=== PATIENT | female | born 1965 | race Caucasian/White ===

== ENCOUNTER → 2020-02-28 | Outpatient (CLI) ==
[~2020-02-28] MED LIST: ACET650T3 PO; APPL300T4 PO; B-12100T2 PO; CVS-161 PO; GINK1CAP PO; KRIL1000 PO; SULF500T2 PO; ZYRTTAB8 PO
== END ==
LOC: EDUNIT# 13:20 → M LABSMTC 13:42
PROVIDERS: ATTEND Anesthesiology
DX: Z01.818 Encounter for other preprocedural examination (principal); Z11.59 Encounter for screening for other viral diseases
CPT/HCPCS: C9803; U0002

== ENCOUNTER 2020-03-01 09:55 | Day surgery (SDC) | payer OTHER, SELFPAY ==
[~2020-03-01] VITALS: Ht 170.2 cm; Wt 88.5 kg
[~2020-03-01 09:55] MED LIST changes: -ACET650T3 PO; +LR 1,000 ML IV ONE; +SUGAMMADEX SODIUM 500 MG/5 ML VIAL (BRIDION) As Ordered ONE
[2020-03-01] MEDS ORDERED: ROPIvacaine 0.5% 30ML INJECTION (J2795 PER 1MG) ONE (09:56)
[2020-03-01] MEDS ORDERED: LIDOCAINE 1% MDV 20ML VIAL ONE (09:56)
[2020-03-01] MEDS ORDERED: dexameTHASONE 10MG/1ML VIAL PRES.FREE (J1100 PER 1MG) ONE (09:56)
[2020-03-01] MEDS ORDERED: CLINDAMYCIN 600 MG in IV 1 EA IV ONE (10:15)
[2020-03-01] MEDS ORDERED: ACET650T3 PO (10:29)
[2020-03-01] MEDS ORDERED: LIDOCAINE 2% 100MG/5ML SDV (FOR ANES.) As Ordered ONE (10:29)
[2020-03-01] MEDS ORDERED: ROCURONIUM BROMIDE 50 MG/5 ML VIAL As Ordered ONE ×2 (10:29→10:46)
[2020-03-01] MEDS ORDERED: propofoL 200 MG/20 ML VIAL As Ordered ONE (10:29)
[2020-03-01] MEDS ORDERED: ONDANSETRON 4MG/2ML VIAL As Ordered ONE (10:31)
[2020-03-01] MEDS ORDERED: dexameTHASONE 4 MG/ML 1ML VIAL (J1100 PER 1MG) As Ordered ONE (10:31)
[2020-03-01 10:35] LABS: HEMATOCRIT 41.3 % (36.0-47.0); HEMOGLOBIN 13.6 g/dl (12.0-15.5); MEAN CORPUSCULAR HEMOGLOBIN 31.7 pg (27.0-33.0); MEAN CORPUSCULAR HGB CONC 32.9 g/dl (32.0-36.5); MEAN CORPUSCULAR VOLUME 96.3 fl (80.0-96.0); PLATELET COUNT, AUTOMATED 215 10^3/uL (150-450); RED BLOOD COUNT 4.29 10^6/uL (4.00-5.40); WHITE BLOOD COUNT 4.7 10^3/uL (4.0-10.0)
[2020-03-01] MEDS ORDERED: fentaNYL 100 MCG/2 ML INJECTION (J3010) As Ordered ONE (10:36)
[2020-03-01] MEDS ORDERED: MIDAZOLAM INJ 2MG/2ML VIAL (J2250 PER 1MG) As Ordered ONE (10:36)
[2020-03-01] MEDS ORDERED: SCOPOLAMINE 1MG TRANSDERMAL PATCH TOP ONE (10:45)
[2020-03-01 11:01] LABS: BLOOD UREA NITROGEN 11 MG/DL (7-18); CALCIUM LEVEL 9.4 MG/DL (8.5-10.1); CARBON DIOXIDE LEVEL 28 MEQ/L (21-32); CHLORIDE LEVEL 106 MEQ/L (98-107); CREATININE FOR GFR 0.58 MG/DL (0.55-1.30); GLOMERULAR FILTRATION RATE > 60.0 (>51); GLUCOSE, FASTING 107 MG/DL (70-100); POTASSIUM SERUM 4.1 MEQ/L (3.5-5.1); SODIUM LEVEL 140 MEQ/L (136-145)
--- NOTE | 2020-03-01 11:01 | ECGEPIP ---
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
[2020-03-01] MEDS: MIDAZOLAM INJ 2MG/2ML VIAL (J2250 PER 1MG) IV PRN ×2 (11:02→11:04)
[2020-03-01] MEDS: fentaNYL 100 MCG/2 ML INJECTION (J3010) IV PRN ×2 (11:02→11:05)
[2020-03-01] MEDS ORDERED: EPINEPHrine 1MG/ML INJ 30ML MD-VIAL As Ordered ONE (11:27)
[2020-03-01] MEDS ORDERED: PHENYLephrine HCL 500 MCG/5 ML (100MCG/ML) SYRINGE (J2370) As Ordered ONE (12:14)
[2020-03-01] MEDS ORDERED: ONDANSETRON 4MG/2ML VIAL IV PRN (13:45)
[2020-03-01] MEDS ORDERED: LR 1,000 ML IV SCH ×2 (13:45)
[2020-03-01] MEDS ORDERED: oxyCODONE 5MG TAB PO PRN (13:45)
[2020-03-01] MEDS ORDERED: MORPHINE 2 MG/ML 1ML VIAL (J2270) IV PRN (13:45)
[2020-03-01] MEDS ORDERED: PERCOCET 5MG/325MG TAB PO PRN ×2 (13:45)
[2020-03-01] MEDS ORDERED: fentaNYL 100 MCG/2 ML INJECTION (J3010) IV PRN (13:45)
[2020-03-01 15:10] VITALS: BP 170/88
--- NOTE | 2020-03-04 00:23 | RO ---
DATE OF PROCEDURE: 03/01/2020 PREPROCEDURE DIAGNOSES: 1. Right shoulder biceps superior labral anterior to posterior (SLAP) tear with biceps tendonitis. 2. Right shoulder acromioclavicular (AC) joint arthritis. POSTPROCEDURE DIAGNOSES: 1. Right shoulder biceps tendonitis. 2. Right shoulder superior labral tear. 3. Right shoulder glenohumeral arthritis. 4. Right shoulder osteochondral loose body. 5. Right shoulder acromioclavicular joint arthritis. PROCEDURE: 1. Right shoulder arthroscopic biceps synovectomy with light humeral chondroplasty. 2. Right shoulder arthroscopic removal of a chondral loose body. 3. Right shoulder arthroscopic superior labral tear debridement. 4. Right shoulder arthroscopic biceps tenotomy with an open subpectoralis tenodesis separate incision. 5. Right shoulder arthroscopic subacromial bursectomy with arthroscopic distal clavicle excision. SURGEON: Chad Rodriguez MD NURSE TRANSPLANT: Ms. Camila Han ANESTHESIA: Right interscalene nerve block with a general endotracheal tube anesthetic. COMPLICATIONS: None. ESTIMATED BLOOD LOSS: 20 mL. FINDINGS: She had extensive tearing of the superior labrum and possible partial upper border subscapularis (subscap) tearing. The biceps was significantly inflated. In addition, however, there was significant chondromalacia involving mainly the anterior aspect of the humeral head with some osteochondral fragmentation noted and a fairly sizable loose body that was floating within the joint, which was photographed and removed with a shaver. The labrum otherwise was redundant and thick posteriorly but intact anteriorly, and the subscap had some waviness appearance to it, but was intact. The AC joint was markedly degenerative with fibrous frayed tissue within the joint consistent with having symptoms emanating from that area as well. The rotator cuff was found not to be torn. DESCRIPTION OF PROCEDURE: After antibiotics were given and appropriate right interscalene nerve block was performed, she was taken to the operating room where general endotracheal tube anesthetic was established. She was placed in the semi-beach chair position, the Spider shoulder pérez was utilized. The right shoulder area was carefully prepped and draped in the usual sterile fashion, and after appropriate time-out, routine diagnostic arthroscopy was performed through a posterior portal with the findings as noted. I debrided the loose fragmenting articular cartilage from the humeral head and then removed the looses body, and then inspected the redundant torn superior labrum and debrided that with a shaver. And then a tenotomy was performed with the ablator wand. Rotator cuff was inspected, found to be intact, and the subscapularis was actually intact, but had some waviness to it, unusual structure to it. It was photographed but it was not torn. Next, I then placed the scope in the subacromial space and performed a bursectomy. The rotator cuff was again not found to be torn on the bursal side. Then, I dissected over and exposed the AC joint and found that the AC joint was quite degenerative with the fragmented fibrous tissue within the AC joint. Then, I used the ablator wand to help debride the bursa and control the bleeding points and then a direct anterior portal was established into the AC joint through which I placed the ablator wand, the shaver, and then eventually the bur to perform a formal distal clavicle excision. Photographs were taken to document this before and afterwards. Once that had been concluded, no other arthroscopic pathology was identifiable that we could treat and thus we removed the arthroscopy instruments, then made a small longitudinal incision in the anterior axillary fold. Used Bovie cautery to coagulate crossing vessels, dissected down to the pectoralis, retrieved the biceps tendon, made a small subperiosteal dissection into the bicipital groove into which I placed the drill guide for the Mitek anchor, drilled the hole, placed the Mitek anchor. Then, I stitched at the myotendinous junction of the biceps tendon, removed the access and then dumped it down to the anchor and secured it to the anchor with several alternating post half-hitches. We then cut the sutures short, copiously irrigated the wound, and closed the anterior axillary skin incision with a running #3-0 nylon suture The rest of the arthroscopy portals were closed with nylon sutures, covered by Adaptic, dry sterile bulky dressing, and she was placed into an abduction brace, then awakened from general endotracheal tube anesthesia after having tolerated the procedure well and transferred to the recovery room in stable condition. There were no intraoperative complications. Ms. Camila Han was critical to the success of this difficult procedure by helping to appropriately manipulate the shoulder and the instruments, helped to prepare the patient for surgery, helped to close the wound, amongst many other tasks to allow me to perform the operation smoothly, efficiently, and safely.
== END 2020-03-01 15:15 | disposition home or self-care (01) ==
LOC: M SDC 09:55
PROVIDERS: ATTEND Orthopaedic Surgery
DX: S43.431A Superior glenoid labrum lesion of right shoulder, initial encounter (principal); M75.21 Bicipital tendinitis, right shoulder; M19.011 Primary osteoarthritis, right shoulder; M24.011 Loose body in right shoulder; Z88.0 Allergy status to penicillin; X58.XXXA Exposure to other specified factors, initial encounter; Y92.89 Other specified places as the place of occurrence of the external cause; Y93.9 Activity, unspecified; Y99.9 Unspecified external cause status
CPT/HCPCS: 23430; 29819; 29823; 29824; 36415; 64415; 80048; 85027; 88304; 93005; C1713; J1100; J2250; J2370; J2405; J2795

== ENCOUNTER 2020-03-12 12:03 | Inpatient (IN) | payer BC, OTHER ==
[~2020-03-12] VITALS: Ht 170.2 cm; Wt 87.1 kg
[~2020-03-12 12:03] MED LIST changes: +ACET650T3 PO; +ATORVASTATIN 20 MG TAB PO SCH; -LR 1,000 ML IV ONE; -SUGAMMADEX SODIUM 500 MG/5 ML VIAL (BRIDION) As Ordered ONE
[2020-03-12] MEDS ORDERED: HYDR-3713 PO (12:12)
[2020-03-12] MEDS ORDERED: NS 1,000 ML IV SCH (12:45)
[2020-03-12] MEDS ORDERED: ISOVUE-370 76% 100ML VIAL As Ordered ONE (12:47)
[2020-03-12 12:48] LABS: HEMATOCRIT 40.4 % (36.0-47.0); HEMOGLOBIN 13.4 g/dl (12.0-15.5); MEAN CORPUSCULAR HEMOGLOBIN 30.8 pg (27.0-33.0); MEAN CORPUSCULAR HGB CONC 33.2 g/dl (32.0-36.5); MEAN CORPUSCULAR VOLUME 92.9 fl (80.0-96.0); PLATELET COUNT, AUTOMATED 229 10^3/uL (150-450); RED BLOOD COUNT 4.35 10^6/uL (4.00-5.40); WHITE BLOOD COUNT 5.1 10^3/uL (4.0-10.0)
[2020-03-12 13:01] LABS: INR 0.92; PROTHROMBIN TIME 12.1 SECONDS (11.8-14.0)
[2020-03-12 13:20] LABS: ALBUMIN 4.3 GM/DL (3.2-5.2); ALT/SGPT 68 U/L (12-78); BILIRUBIN,DIRECT 0.1 MG/DL (0.0-0.2); BILIRUBIN,TOTAL 0.4 MG/DL (0.2-1.0); BLOOD UREA NITROGEN 11 MG/DL (7-18); CALCIUM LEVEL 9.1 MG/DL (8.5-10.1); CARBON DIOXIDE LEVEL 26 MEQ/L (21-32); CHLORIDE LEVEL 106 MEQ/L (98-107); CREATININE FOR GFR 0.57 MG/DL (0.55-1.30); GLOMERULAR FILTRATION RATE > 60.0 (>51); GLUCOSE, FASTING 107 MG/DL (70-100); POTASSIUM SERUM 3.8 MEQ/L (3.5-5.1); SODIUM LEVEL 138 MEQ/L (136-145); TOTAL PROTEIN 7.9 GM/DL (6.4-8.2)
--- NOTE | 2020-03-12 13:53 | REP ---
CT BRAIN WITHOUT CONTRAST: CT brain performed without IV contrast. Coronal reconstruction images are performed The ventricles are normal in size and position with no midline shift or mass effect. Tompkins-white differentiation is well maintained. There is no intracranial hemorrhage or extra-axial fluid collection. Visualized mastoid air cells and paranasal sinuses are clear. There is a soft tissue nodule in the left parietal convexity approximately 9 mm in diameter, which probably represents a complex sebaceous cyst or nodule. IMPRESSION: Essentially negative CT brain without contrast. Electronically Signed by Ugo Tompkins MD 03/12/2020 02:30 P
[2020-03-12] MEDS ORDERED: ASPIRIN 325 MG TAB PO ONE (14:30)
--- NOTE | 2020-03-12 14:34 | REP ---
CT ANGIOGRAM NECK: CT angiogram of the neck is performed following the intravenous administration of 100 mL Isovue-370. Sagittal, coronal, and MIP reconstruction images are performed. Aortic arch is normal in caliber with no aneurysm or dissection. Subclavian arteries are patent with no stenosis. Both common carotid arteries are patent with no significant narrowing or stenosis. The internal and external carotid arteries are patent with no significant stenosis or occlusion. Adjacent soft tissues of the neck are unremarkable with no mass or adenopathy. Visualized lung apices are clear. The cervical portion of the vertebral arteries are patent. IMPRESSION: No evidence of internal carotid artery stenosis or occlusion bilaterally. Electronically Signed by Ugo Tompkins MD 03/12/2020 03:14 P
--- NOTE | 2020-03-12 14:39 | REP ---
CT ANGIOGRAM BRAIN: CT angiogram of the brain is performed following the intravenous administration of 100 mL of Isovue-370. Sagittal, coronal, and MIP reconstruction images are performed. The left vertebral artery is dominant. The right vertebral artery is patent. There is a somewhat tortuous basilar artery which does not demonstrate stenosis or occlusion. There are symmetrical patent posterior cerebral arteries. Intracranial internal carotid arteries are patent and symmetrical. The right anterior communicating artery is smaller in caliber than the left. Anterior and middle cerebral arteries are symmetrical and patent. I see no aneurysm or AVM. IMPRESSION: No evidence of significant intracranial arterial abnormality. Electronically Signed by Ugo Tompkins MD 03/12/2020 03:14 P
[2020-03-12 15:20] LABS: HEMOGLOBIN A1c 4.6 %
[2020-03-12 15:21] LABS: MAGNESIUM LEVEL 2.1 MG/DL (1.8-2.4)
[2020-03-12 15:24] VITALS: BP 153/74
--- NOTE | 2020-03-12 15:37 | REPVR ---
PROCEDURE INFORMATION: Exam: MR Head Without Contrast Exam date and time: 03/12/2020 2:28 PM Age: 54 years old Clinical indication: Visual disturbance; Additional info: Vision changes TECHNIQUE: Imaging protocol: MR of the head without contrast. COMPARISON: CT Head without contrast 03/12/2020 12:42 PM FINDINGS: Brain: Examination reveals few tiny focal areas of increased T2 signal in bilateral frontal and parietal subcortical white matter. These are nonspecific and could be secondary to chronic migraine headache and focal areas of chronic ischemia. No acute infarction, masses, midline shift or acute hemorrhage is seen. No acute intracranial abnormality is identified.There is no abnormal diffusion weighted signal intensity to suggest an acute ischemic event.The cortical morales / white matter interfaces are preserved throughout the brain.Intracranial flow voids are well maintained.Examination of the posterior fossa demonstrates no significant abnormality.On gradient echo imaging, no susceptibility changes are seen to represent parenchymal calcification or degraded blood products. Ventricles: The ventricular system is not dilated and is appropriate for the patient's age. Bones/joints: Unremarkable. Sinuses: Normal as visualized. No acute sinusitis. Mastoid air cells: Normal as visualized. No mastoid effusion. Orbits: Unremarkable. Soft tissues: Unremarkable. IMPRESSION: No acute infarction, masses or hemorrhage is seen. No acute intracranial abnormality is identified. Electronically signed by: Estuardo Newton On 03/12/2020 15:37:08 PM
[2020-03-12] MEDS ORDERED: RA G1TAB11 PO (15:57)
[2020-03-12] MEDS ORDERED: NORCO, ANEXSIA 5/325MG TABLET (HYDROcodone/ACETAMINOPHEN) PO PRN (16:00)
[2020-03-12] MEDS ORDERED: ACETAMINOPHEN 650MG ER TAB (TYLENOL ARTHRITIS) PO PRN (16:00)
[2020-03-12] MEDS ORDERED: TETRACAINE 0.5% OPHTH SOLN 4ML OD ONE (17:15)
[2020-03-12 18:26] VITALS: BP 155/68
--- NOTE | 2020-03-12 22:13 | ECGEPIP ---
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
[2020-03-13] MEDS ORDERED: ASPIRIN ENTERIC 325 MG TAB PO SCH (09:00)
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
--- NOTE | 2020-03-13 11:51 | ECHO ---
DATE OF STUDY: 03/12/2020 REFERRING PHYSICIAN: Dr. Hankins INDICATION: Transient ischemic attack (TIA). Height 170 cm, weight 87 kg. DIMENSIONS: RV: 3.5 IVS: 1.1 LV: 4.0 LVPW: 1.1 LA: 3.3 Aorta: 3.5 Mitral E wave velocity: 56 A wave: 79 E prime septal: 5.0 E prime lateral: 7.2 FINDINGS: The study is of fair technical quality. The patient is in sinus rhythm. There are decent parasternal and subcostal views, but apical views were of very limited quality. Left ventricle is normal size and systolic function, estimated left ventricular ejection fraction (LVEF) 65% to 70%. Right ventricle appears normal. Both atria appear normal. All four cardiac valves were reasonably well seen and appear normal. No pericardial effusion is noted. Inferior vena cava is normal size and appropriately collapses with inspiration. Aortic root and aortic arch appear normal. Abdominal aorta was not well seen. Doppler interrogation reveals no stenosis or insufficiency of all four cardiac valves. Mitral inflow pattern and tissue Doppler imaging of mitral annulus reveal grade 1 diastolic dysfunction. CONCLUSIONS: 1. Study is of fair technical quality; the patient is in sinus rhythm. 2. Normal left ventricle (LV) size and systolic function, grade 1 diastolic dysfunction. 3. No significant valvular disease. 4. Likely normal central venous pressure, unable to estimate pulmonary artery pressure. 5. No obvious abnormalities to explain TIA.
== END 2020-03-12 18:35 | disposition short-term general hospital (02) | DRG 82 ==
LOC: M ED 12:03 → M ED INP 14:33 → ENRESERV 14:53 → M PCU 15:23
PROVIDERS: ADMIT General Practice; ATTEND General Practice
DX: H40.219 Acute angle-closure glaucoma, unspecified eye (principal); Z88.0 Allergy status to penicillin; Z79.899 Other long term (current) drug therapy

== ENCOUNTER → 2021-12-19 | Outpatient (CLI) | payer BC ==
[~2021-12-19] MED LIST changes: -ATORVASTATIN 20 MG TAB PO SCH; +HYDR-3713 PO; +ISOVUE-300 61% 50ML VIAL As Ordered ONE; +LIDOCAINE 1% MDV 20ML VIAL As Ordered ONE; +RA G1TAB11 PO; +TRIAMCINOLONE ACETONIDE SUSP 40 MG/ML VIAL (J3301) As Ordered ONE
== END ==
LOC: M RADPRO 15:08
PROVIDERS: ATTEND Orthopaedic Surgery
DX: M19.011 Primary osteoarthritis, right shoulder (principal)
CPT/HCPCS: 20610; 77002; J3301; Q9967

== ENCOUNTER → 2022-08-28 | Outpatient (CLI) | payer BC, OTHER ==
[~2022-08-28] MED LIST changes: -ISOVUE-300 61% 50ML VIAL As Ordered ONE; +ISOVUE-300 61% 50ML VIAL ONE; -LIDOCAINE 1% MDV 20ML VIAL As Ordered ONE; +LIDOCAINE 1% MDV 20ML VIAL ONE; -TRIAMCINOLONE ACETONIDE SUSP 40 MG/ML VIAL (J3301) As Ordered ONE; +TRIAMCINOLONE ACETONIDE SUSP 40 MG/ML VIAL (J3301) ONE
== END ==
LOC: M PLAIMG 13:42
PROVIDERS: ATTEND Orthopaedic Surgery
DX: M19.011 Primary osteoarthritis, right shoulder (principal)
CPT/HCPCS: 20610; 76000; J3301

== ENCOUNTER → 2023-01-29 | Outpatient (CLI) | payer OTHER ==
[~2023-01-29] MED LIST changes: -ISOVUE-300 61% 50ML VIAL ONE; -LIDOCAINE 1% MDV 20ML VIAL ONE; -TRIAMCINOLONE ACETONIDE SUSP 40 MG/ML VIAL (J3301) ONE
== END ==
LOC: M RAD 15:00
PROVIDERS: ATTEND Physician Assistant Surgical
DX: M19.072 Primary osteoarthritis, left ankle and foot (principal)

== ENCOUNTER 2023-02-21 10:05 | Emergency (ER) | payer BC, OTHER ==
[~2023-02-21] VITALS: Ht 170.2 cm; Wt 79.8 kg
[2023-02-21 12:30] VITALS: BP 162/81
== END 2023-02-21 12:37 | disposition home or self-care (01) ==
LOC: M ED 10:05
DX: R60.0 Localized edema (principal); M79.605 Pain in left leg; I10 Essential (primary) hypertension; Z88.0 Allergy status to penicillin; Z88.1 Allergy status to other antibiotic agents; Z91.02 Food additives allergy status; Z79.1 Long term (current) use of non-steroidal anti-inflammatories (NSAID); Z79.810 Long term (current) use of selective estrogen receptor modulators (SERMs); Z79.899 Other long term (current) drug therapy

== ENCOUNTER → 2024-01-20 | Outpatient (REF) | payer BC ==
[2024-01-20 18:38] LABS: BASO # 0.1 10^3/uL (0.0-0.2); EOS # 0.1 10^3/uL (0.0-0.5); EOS % 2.2 % (0.0-3.0); HEMATOCRIT 37.7 % (36.0-47.0); HEMOGLOBIN 12.7 g/dl (12.0-15.5); LYMPH % 38.9 % (24.0-44.0); MEAN CORPUSCULAR HEMOGLOBIN 30.9 pg (27.0-33.0); MEAN CORPUSCULAR HGB CONC 33.7 g/dl (32.0-36.5); MEAN CORPUSCULAR VOLUME 91.7 fl (80.0-96.0); MONO # 0.4 10^3/uL (0.0-0.8); MONO % 7.5 % (2.0-8.0); NEUTROPHILS # 2.5 10^3/uL (1.5-8.5); PLATELET COUNT, AUTOMATED 203 10^3/uL (150-450); RED BLOOD COUNT 4.11 10^6/uL (4.00-5.40); WHITE BLOOD COUNT 5.1 10^3/uL (4.0-10.0)
[2024-01-20 18:41] LABS: HEMOGLOBIN A1c 5.2 % (4.0-6.0)
[2024-01-20 18:58] LABS: C REACTIVE PROTEIN QUANTITATIV < 0.40 MG/DL (<1.0)
[2024-01-20 18:59] LABS: ALBUMIN 4.2 G/DL (3.2-5.2); ALKALINE PHOSPHATASE 59 U/L (46-116); ALT/SGPT 23 U/L (7.0-40); AST/SGOT 11 U/L (<34); BILIRUBIN,TOTAL 0.6 MG/DL (0.3-1.2); BLOOD UREA NITROGEN 22 MG/DL (9-23); CALCIUM LEVEL 9.2 MG/DL (8.5-10.1); CARBON DIOXIDE LEVEL 28 MMOL/L (20-31); CHLORIDE LEVEL 106 MMOL/L (98-107); CHOLESTEROL LEVEL 223 MG/DL (<200); CHOLESTEROL RISK RATIO 2.88 (<5); CREATININE FOR GFR 0.53 MG/DL (0.55-1.30); GLOMERULAR FILTRATION RATE > 60.0 (>51); GLUCOSE, FASTING 93 MG/DL (60-100); HDL CHOLESTEROL 77.3 MG/DL (>40); LDL CHOLESTEROL 102.5 MG/DL (<100); NON-HDL-C 145.7 MG/DL; POTASSIUM SERUM 3.9 MMOL/L (3.5-5.1); SODIUM LEVEL 138 MMOL/L (136-145); THYROID STIMULATING HORMONE 2.003 uIU/ML (0.55-4.78); TRIGLYCERIDES LEVEL 216 MG/DL (<150)
[2024-01-20 19:00] LABS: FREE T4 0.91 NG/DL (0.89-1.76)
[2024-01-20 19:13] LABS: ERYTHROCYTE SEDIMENTATION RATE 11 mm/hr (0-30)
[2024-01-22 23:07] LABS: CYCLIC CITRULLINATED PEPTIDE 5 units (0-19)
== END ==
LOC: M SFHCCLAY 13:59
PROVIDERS: ATTEND Nurse Practitioner Family
DX: M19.90 Unspecified osteoarthritis, unspecified site (principal); Z13.220 Encounter for screening for lipoid disorders; Z13.1 Encounter for screening for diabetes mellitus

== ENCOUNTER → 2024-01-30 | Outpatient (CLI) | payer BC | LOC: M WHC 13:52 | PROVIDERS: ATTEND Nurse Practitioner Family | DX: Z12.31 Encounter for screening mammogram for malignant neoplasm of breast (principal) ==

== ENCOUNTER 2024-04-21 08:48 | Day surgery (SDC) | payer BC ==
[~2024-04-21] VITALS: Ht 170.2 cm; Wt 81.6 kg
[~2024-04-21 08:48] MED LIST changes: +CALC500T38 PO; +CODCAP26 PO; +RA G580C PO; +TURM500C PO; +ZYRT10TA12 PO
[2024-04-21] MEDS: NS 1,000 ML IV ONE (09:17)
[2024-04-21] MEDS ORDERED: LIDOCAINE 2% 100MG/5ML SDV (FOR ANES.) As Ordered ONE (09:20)
[2024-04-21] MEDS ORDERED: propofoL 200 MG/20 ML VIAL As Ordered ONE (09:20)
[2024-04-21 10:46] VITALS: TEMP 97.3
[2024-04-21 11:07] VITALS: BP 147/67; O2SAT 100
== END 2024-04-21 11:15 | disposition home or self-care (01) ==
LOC: M OPP 08:48
PROVIDERS: ATTEND Surgery
DX: D12.6 Benign neoplasm of colon, unspecified (principal); R19.5 Other fecal abnormalities; Z88.0 Allergy status to penicillin; Z88.1 Allergy status to other antibiotic agents; Z91.018 Allergy to other foods

== ENCOUNTER 2024-06-11 11:17 | Emergency (ER) | payer BC ==
[~2024-06-11] VITALS: Ht 170.2 cm; Wt 85.1 kg
[2024-06-11 14:19] LABS: BASO % 0.5 % (0.0-1.0); EOS # 0.1 10^3/uL (0.0-0.5); EOS % 1.9 % (0.0-3.0); HEMATOCRIT 38.1 % (36.0-47.0); HEMOGLOBIN 12.7 g/dl (12.0-15.5); LYMPH # 1.6 10^3/uL (1.5-5.0); LYMPH % 28.7 % (24.0-44.0); MEAN CORPUSCULAR HGB CONC 33.3 g/dl (32.0-36.5); MEAN CORPUSCULAR VOLUME 92.9 fl (80.0-96.0); MONO # 0.4 10^3/uL (0.0-0.8); MONO % 7.8 % (2.0-8.0); NEUTROPHILS # 3.4 10^3/uL (1.5-8.5); NEUTROPHILS % 60.7 % (36.0-66.0); PLATELET COUNT, AUTOMATED 247 10^3/uL (150-450); WHITE BLOOD COUNT 5.7 10^3/uL (4.0-10.0)
[2024-06-11 14:46] LABS: BLOOD UREA NITROGEN 17 MG/DL (9-23); CALCIUM LEVEL 9.4 MG/DL (8.5-10.1); CARBON DIOXIDE LEVEL 27 MMOL/L (20-31); CHLORIDE LEVEL 107 MMOL/L (98-107); CREATININE FOR GFR 0.42 MG/DL (0.55-1.30); GLOMERULAR FILTRATION RATE > 60.0 (>51); GLUCOSE, FASTING 107 MG/DL (60-100); POTASSIUM SERUM 4.3 MMOL/L (3.5-5.1); SODIUM LEVEL 139 MMOL/L (136-145)
[2024-06-11] MEDS ORDERED: ISOVUE-370 76% 100ML VIAL As Ordered ONE (14:54)
[2024-06-11 16:47] VITALS: BP 151/81; TEMP 97.3; O2SAT 100
== END 2024-06-11 16:48 | disposition home or self-care (01) ==
LOC: M ED 11:17
DX: S70.01XA Contusion of right hip, initial encounter (principal); V80.010D Animal-rider injured by fall from or being thrown from horse in noncollision accident, subsequent encounter; F10.10 Alcohol abuse, uncomplicated; Z88.0 Allergy status to penicillin; Z88.1 Allergy status to other antibiotic agents; Z91.02 Food additives allergy status; Y92.9 Unspecified place or not applicable; Y93.89 Activity, other specified; Y99.9 Unspecified external cause status; Z79.899 Other long term (current) drug therapy
CPT/HCPCS: 36415; 73700; 80048; 85025; 99284; Q9967

== ENCOUNTER 2024-08-23 14:47 | Emergency (ER) | payer BC ==
[~2024-08-23] VITALS: Ht 170.2 cm; Wt 87.2 kg
[~2024-08-23 14:47] MED LIST changes: +GARL580C PO; -RA G580C PO
[2024-08-23] MEDS: methylPREDNISolone 125MG 2ML VIAL IM ONE (18:21)
[2024-08-23] MEDS ORDERED: PRED50TA PO (18:56)
[2024-08-23 19:19] VITALS: BP 165/80; TEMP 97.6; O2SAT 100
== END 2024-08-23 19:35 | disposition home or self-care (01) ==
LOC: M ED 14:47
DX: L50.1 Idiopathic urticaria (principal); Z88.0 Allergy status to penicillin; Z88.1 Allergy status to other antibiotic agents; Z91.02 Food additives allergy status; Z79.899 Other long term (current) drug therapy; Z79.52 Long term (current) use of systemic steroids
CPT/HCPCS: 96372; 99284; J2919

== ENCOUNTER → 2024-08-31 | Outpatient (REF) | payer BC ==
[~2024-08-31] MED LIST changes: +PRED50TA PO
[2024-08-31 19:00] LABS: BASO % 0.7 % (0.0-1.0); EOS # 0.1 10^3/uL (0.0-0.5); EOS % 2.2 % (0.0-3.0); HEMATOCRIT 41.6 % (36.0-47.0); HEMOGLOBIN 13.7 g/dl (12.0-15.5); LYMPH % 16.4 % (24.0-44.0); MEAN CORPUSCULAR HEMOGLOBIN 29.4 pg (27.0-33.0); MEAN CORPUSCULAR HGB CONC 32.9 g/dl (32.0-36.5); MEAN CORPUSCULAR VOLUME 89.3 fl (80.0-96.0); MONO # 0.4 10^3/uL (0.0-0.8); MONO % 6.4 % (2.0-8.0); NEUTROPHILS # 4.4 10^3/uL (1.5-8.5); NEUTROPHILS % 73.6 % (36.0-66.0); PLATELET COUNT, AUTOMATED 108 10^3/uL (150-450); RED BLOOD COUNT 4.66 10^6/uL (4.00-5.40); WHITE BLOOD COUNT 5.9 10^3/uL (4.0-10.0)
[2024-08-31 19:01] LABS: ALBUMIN 3.8 G/DL (3.2-5.2); ALKALINE PHOSPHATASE 218 U/L (35-104); ALT/SGPT 138 U/L (7.0-40); AST/SGOT 67 U/L (<34); BILIRUBIN,TOTAL 0.6 MG/DL (0.3-1.2); BLOOD UREA NITROGEN 16 MG/DL (9-23); CALCIUM LEVEL 9.9 MG/DL (8.5-10.1); CARBON DIOXIDE LEVEL 32 MMOL/L (20-31); CHLORIDE LEVEL 103 MMOL/L (98-107); CREATININE FOR GFR 0.59 MG/DL (0.55-1.30); GLOMERULAR FILTRATION RATE > 60.0 (>51); GLUCOSE, FASTING 96 MG/DL (60-100); POTASSIUM SERUM 3.7 MMOL/L (3.5-5.1); SODIUM LEVEL 139 MMOL/L (136-145); TOTAL PROTEIN 7.6 G/DL (5.7-8.2)
[2024-08-31 19:04] LABS: THYROID STIMULATING HORMONE 1.323 uIU/ML (0.55-4.78)
[2024-08-31 19:07] LABS: ERYTHROCYTE SEDIMENTATION RATE 37 mm/hr (0-30)
== END ==
LOC: M SFHCCLAY 10:56
PROVIDERS: ATTEND Physician Assistant
DX: L50.8 Other urticaria (principal)

== ENCOUNTER → 2025-04-19 | Outpatient (REF) | payer BC ==
[~2025-04-19] MED LIST changes: -PRED50TA PO; +PRED50TA57 PO
[2025-04-19 17:33] LABS: BASO # 0.1 10^3/uL (0.0-0.2); BASO % 0.9 % (0.0-1.0); EOS # 0.2 10^3/uL (0.0-0.5); EOS % 2.8 % (0.0-3.0); LYMPH # 1.5 10^3/uL (1.5-5.0); LYMPH % 27.0 % (24.0-44.0); MONO # 0.5 10^3/uL (0.0-0.8); MONO % 8.6 % (2.0-8.0); NEUTROPHILS # 3.4 10^3/uL (1.5-8.5); NEUTROPHILS % 60.3 % (36.0-66.0); PLATELET COUNT, AUTOMATED 196 10^3/uL (150-450)
[2025-04-19 17:44] LABS: ALT/SGPT 40 U/L (7.0-40); AST/SGOT 27 U/L (<34); CALCIUM LEVEL 9.5 MG/DL (8.3-10.6); CARBON DIOXIDE LEVEL 29 MMOL/L (20-31); CHLORIDE LEVEL 107 MMOL/L (98-107); CHOLESTEROL LEVEL 223 MG/DL (<200); CHOLESTEROL RISK RATIO 3.47 (<5); CREATININE FOR GFR 0.57 MG/DL (0.55-1.30); GLOMERULAR FILTRATION RATE > 90.0 (>45); LDL CHOLESTEROL 109.9 MG/DL (<100); NON-HDL-C 158.9 MG/DL; POTASSIUM SERUM 3.5 MMOL/L (3.5-5.1); SODIUM LEVEL 142 MMOL/L (136-145); TRIGLYCERIDES LEVEL 245 MG/DL (<150)
[2025-04-19 17:46] LABS: FREE T4 1.10 NG/DL (0.89-1.76)
[2025-04-19 17:52] LABS: ESTIMATED AVERAGE GLUCOSE 97.0 MG/DL (60-110)
[2025-04-25 16:12] LABS: LYME TOTAL ANTIBODY CIA 2.62 Index (<=0.90)
[2025-04-26 18:32] LABS: LYME AB IGG BY CIA 0.92 Index (<=0.90); LYME AB IGM BY CIA 2.25 Index (<=0.90)
== END ==
LOC: M SFHCCLAY 14:28
PROVIDERS: ATTEND Nurse Practitioner Family
DX: Z00.00 Encounter for general adult medical examination without abnormal findings (principal); M06.00 Rheumatoid arthritis without rheumatoid factor, unspecified site; Z86.19 Personal history of other infectious and parasitic diseases

== ENCOUNTER → 2025-04-26 | Outpatient (REF) | payer BC | LOC: M SFHCCLAY 14:19 | PROVIDERS: ATTEND Nurse Practitioner Family | DX: Z86.19 Personal history of other infectious and parasitic diseases (principal) ==

== ENCOUNTER → 2025-06-17 | Outpatient (CLI) | payer BC | LOC: M RAD 10:19 | PROVIDERS: ATTEND Internal Medicine Rheumatology | DX: R52 Pain, unspecified (principal); Z87.39 Personal history of other diseases of the musculoskeletal system and connective tissue ==

== ENCOUNTER → 2025-06-17 | Outpatient (REF) | payer BC ==
[2025-06-17 16:32] LABS: ALT/SGPT 214 U/L (7.0-40); AST/SGOT 86 U/L (<34); C REACTIVE PROTEIN QUANTITATIV < 0.50 MG/DL (<1.0); CALCIUM LEVEL 9.8 MG/DL (8.3-10.6); CARBON DIOXIDE LEVEL 28 MMOL/L (20-31); CHLORIDE LEVEL 104 MMOL/L (98-107); CREATININE FOR GFR 0.55 MG/DL (0.55-1.30); GLOMERULAR FILTRATION RATE > 90.0 (>45); POTASSIUM SERUM 4.4 MMOL/L (3.5-5.1); SODIUM LEVEL 143 MMOL/L (136-145)
[2025-06-17 16:33] LABS: BASO # 0.1 10^3/uL (0.0-0.2); BASO % 1.1 % (0.0-1.0); EOS # 0.2 10^3/uL (0.0-0.5); EOS % 3.4 % (0.0-3.0); LYMPH # 1.5 10^3/uL (1.5-5.0); LYMPH % 32.8 % (24.0-44.0); MONO # 0.3 10^3/uL (0.0-0.8); MONO % 7.1 % (2.0-8.0); NEUTROPHILS # 2.6 10^3/uL (1.5-8.5); NEUTROPHILS % 55.0 % (36.0-66.0); PLATELET COUNT, AUTOMATED 232 10^3/uL (150-450)
[2025-06-17 16:42] LABS: ERYTHROCYTE SEDIMENTATION RATE 24 mm/hr (0-30)
== END ==
LOC: M SFHCRHEU 09:27
PROVIDERS: ATTEND Internal Medicine Rheumatology
DX: R52 Pain, unspecified (principal); Z87.39 Personal history of other diseases of the musculoskeletal system and connective tissue

== ENCOUNTER → 2025-06-28 | Outpatient (REF) | payer BC ==
[2025-06-28 19:30] LABS: ALT/SGPT 55 U/L (7.0-40); AST/SGOT 26 U/L (<34)
[2025-06-28 20:00] LABS: HEPATITIS C VIRUS ABY INDEX < 0.02 INDEX (<0.8)
== END ==
LOC: M SFHCCLAY 10:16
PROVIDERS: ATTEND Physician Assistant
DX: R74.8 Abnormal levels of other serum enzymes (principal)

== ENCOUNTER → 2025-07-07 | Outpatient (CLI) | payer OTHER | LOC: M CLY 09:25 | PROVIDERS: ATTEND Nurse Practitioner Family | DX: S22.31XA Fracture of one rib, right side, initial encounter for closed fracture (principal); V89.2XXS Person injured in unspecified motor-vehicle accident, traffic, sequela ==

== ENCOUNTER → 2025-08-09 | Outpatient (REF) | payer OTHER | LOC: M SFHCCLAY 14:42 | PROVIDERS: ATTEND Nurse Practitioner Family | DX: A69.20 Lyme disease, unspecified (principal) ==

== ENCOUNTER → 2025-08-09 | Outpatient (CLI) | payer OTHER | LOC: M CLY 14:46 | PROVIDERS: ATTEND Nurse Practitioner Family | DX: S22.31XA Fracture of one rib, right side, initial encounter for closed fracture (principal); W18.30XA Fall on same level, unspecified, initial encounter; Y92.009 Unspecified place in unspecified non-institutional (private) residence as the place of occurrence of the external cause ==